=== PATIENT | male | born 1990 | race Asian ===

== ENCOUNTER 2021-08-22 01:36 | Emergency (ER) | payer BC ==
[~2021-08-22] VITALS: Ht 172.7 cm; Wt 66.7 kg
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
[2021-08-22] MEDS ORDERED: TDAP [DIPH/PERTUSSIS/TET] 0.5 ML VIAL IM ONE ×2 (02:30→02:45)
[2021-08-22] MEDS ORDERED: ONDANSETRON 4 MG TAB.RAPDIS SL ONE (02:30)
--- NOTE | 2021-08-22 02:31 | NUR ---
PT TAKEN TO CT VIA RAUL
--- NOTE | 2021-08-22 02:40 | NUR ---
PT RETURNED TO ER BED [address]
[2021-08-22] MEDS ORDERED: ONDANSETRON 4 MG TAB.RAPDIS ONE (02:45)
[2021-08-22] MEDS ORDERED: LIDOCAINE 1%-EPI 1:100,000 20 ML VIAL ONE (03:57)
--- NOTE | 2021-08-22 04:21 | NUR ---
Patient discharged to home in stable condition. Written and verbal after care instructions given. Patient verbalizes understanding of instruction.
[2021-08-22 04:22] VITALS: BP 121/77
== END 2021-08-22 04:27 | disposition home or self-care (01) ==
LOC: ER 01:40
DX: S01.111A Laceration without foreign body of right eyelid and periocular area, initial encounter (principal); R11.0 Nausea; Y04.0XXA Assault by unarmed brawl or fight, initial encounter; Y93.89 Activity, other specified; Y92.89 Other specified places as the place of occurrence of the external cause; Y99.8 Other external cause status
CPT/HCPCS: 99284; 70450; 12011; 90471; 90715; A6403 ×2; J3490; Q0162